=== PATIENT | male | born 1955 | race Caucasian/White ===

== ENCOUNTER 2016-11-22 12:00 | Emergency (ER) | payer SELFPAY ==
[2016-11-22] MEDS: Sodium Chloride 0.9% 20 ML SDV FLUSH SCH ×2 (12:20→15:07)
[2016-11-22] MEDS ORDERED: Nitroglycerin 0.4 MG Tab.SL SL PRN (12:33)
--- NOTE | 2016-11-22 12:40 | EDM.PDOC ---
ED HPI GENERAL MEDICAL PROBLEM - General Chief Complaint: Chest Pain Stated Complaint: CHEST PRESSURE Time Seen by Provider: 11/22/16 12:10 Source of Information: Reports: Patient History Limitations: Reports: No Limitations - History of Present Illness Onset: Today, Gradual Duration: Hour(s): (1) Location: Reports: Chest Quality: Reports: Pressure Severity: Mild Improves with: Reports: None Worsens with: Reports: None Context: Reports: Other (rest) Associated Symptoms: Reports: Diaphoresis, Nausea/Vomiting Treatments MANAGED CARE MANAGER: Reports: Aspirin Middle Chest Pain Score (Numeric/FACES): 1 - Related Data Allergies Allergy/AdvReac Type Severity Reaction Status Date / Time No Known Drug Allergies Allergy Cannot Verified 11/22/16 12:29 Remember Home Meds: Home Meds Metoprolol Tartrate [Lopressor] 12.5 mg PO BID 03/19/16 [History] Aspirin 81 mg PO DAILY 11/22/16 [History] Past Medical History HEENT History: Reports: None Cardiovascular History: Reports: Afib, Angina, High Cholesterol, Hypertension, Stents Respiratory History: Reports: None Gastrointestinal History: Reports: None Genitourinary History: Reports: None Musculoskeletal History: Reports: Arthritis Neurological History: Reports: None Psychiatric History: Reports: None Hematologic History: Reports: Anticoagulation Therapy Immunologic History: Reports: None Oncologic (Cancer) History: Reports: None Dermatologic History: Reports: None - Infectious Disease History Infectious Disease History: Reports: Chicken Pox, Measles, Mumps - Past Surgical History Cardiovascular Surgical History: Reports: Coronary Artery Stent Social & Family History - Family History Family Medical History: Unobtainable - Tobacco Use Smoking Status *Q: Never Smoker Years of Tobacco use: 0 Packs/Tins Daily: 1 Used Tobacco, but Quit: Yes Month Tobacco Last Used: September Second Hand Smoke Exposure: No - Caffeine Use Caffeine Use: Reports: Soda - Alcohol Use Days Per Week of Alcohol Use: 3 Number of Drinks Per Day: 5 Total Drinks Per Week: 15 - Recreational Drug Use Recreational Drug Use: No Recreational Drug Type: Reports: Marijuana/Hashish ED ROS GENERAL - Review of Systems Review Of Systems: See Below Constitutional: Reports: Diaphoresis. Denies: Fever HEENT: Reports: No Symptoms Respiratory: Reports: No Symptoms. Denies: Shortness of Breath, Cough Cardiovascular: Reports: Chest Pain Endocrine: Reports: No Symptoms GI/Abdominal: Reports: Nausea, Vomiting : Reports: No Symptoms Musculoskeletal: Reports: No Symptoms Skin: Reports: No Symptoms Neurological: Reports: No Symptoms Psychiatric: Reports: No Symptoms Hematologic/Lymphatic: Reports: No Symptoms Immunologic: Reports: No Symptoms ED EXAM, GENERAL - Physical Exam Exam: See Below Exam Limited By: No Limitations General Appearance: Alert, WD/WN, No Apparent Distress Eye Exam: Bilateral Eye: EOMI, PERRL Ears: Normal External Exam, Hearing Grossly Normal Nose: Normal Inspection, Normal Mucosa, No Blood Throat/Mouth: Normal Inspection, Normal Oropharynx, Normal Voice, No Airway Compromise Head: Atraumatic, Normocephalic Neck: Normal Inspection, Supple, Non-Tender, Full Range of Motion Respiratory/Chest: No Respiratory Distress, Lungs Clear, Normal Breath Sounds, No Accessory Muscle Use Cardiovascular: Normal Peripheral Pulses, Regular Rate, Rhythm, No Edema, No Gallop, No JVD, No Murmur, No Rub GI/Abdominal: Normal Bowel Sounds, Soft, Non-Tender, No Organomegaly, Other ( healing RLQ incision) Back Exam: Normal Inspection, Full Range of Motion Extremities: Normal Inspection, Normal Range of Motion, No Pedal Edema, Slow Capillary Refill Neurological: Alert, Oriented, CN II-XII Intact, Normal Cognition, Normal Gait, No Motor/Sensory Deficits Psychiatric: Normal Affect, Normal Mood Skin Exam: Warm, Dry, Intact, Normal Color, No Rash, Cool Course - Vital Signs Last Recorded V/S: Last Vital Signs Temp 36.4 C 11/22/16 13:32 Pulse 75 11/22/16 15:11 Resp 18 11/22/16 15:11 BP 145/76 H 11/22/16 15:11 Pulse Ox 100 11/22/16 15:11 - Orders/Labs/Meds Orders: Active Orders 24 hr Category Date Time Status EKG Documentation Completion [RC] ASDIRECTED Care 11/22/16 13:45 Active Chest 2V [CR] Stat Exams 11/22/16 12:34 Taken Heparin Sodium [Heparin Lock Flush 100 Units/ML] Med 11/22/16 15:04 Active 500 unit FLUSH ASDIRECTED PRN Sodium Chloride 0.9% [Normal Saline] Med 11/22/16 15:15 Active 20 ml FLUSH ASDIRECTED Medication Orders Heparin Sodium (Porcine) (Heparin Lock Flush 100 Units/Ml) 500 unit FLUSH ASDIRECTED PRN PRN Reason: port flush Sodium Chloride (Normal Saline) 20 ml FLUSH ASDIRECTED TEJAS Last Admin: 11/22/16 15:07 Dose: 20 ml Admin: 11/22/16 12:20 Dose: 20 ml Labs: Laboratory Tests 11/22/16 11/22/16 11/22/16 Range/Units 12:30 12:30 12:30 WBC (5.0-10.0) 10^3/uL RBC (4.50-6.00) 10^6/uL Hgb (13.0-17.0) g/dL Hct (40.0-52.0) % MCV (82.0-92.0) fL MCH (27.0-31.0) pg MCHC (32.0-36.0) g/dL RDW (11.5-14.5) % Plt Count (150-300) 10^3/uL MPV (7.4-10.4) fL Neut % (Auto) (50.0-70.0) % Lymph % (Auto) (20.0-40.0) % [place] % (Auto) (2.0-8.0) % Eos % (Auto) (1.0-3.0) % Baso % (Auto) (0.0-1.0) % Neut # (Auto) (2.5-7.0) 10^3/uL Lymph # (Auto) (1.0-4.0) 10^3/uL [place] # (Auto) (0.1-0.8) 10^3/uL Eos # (Auto) (0.1-0.3) 10^3/uL Baso # (Auto) (0.0-0.1) 10^3/uL PT 10.0 (8.9-11.4) SEC INR 1.0 (0.9-1.1) Sodium 138 (136-145) mmol/L Potassium 4.2 (3.3-5.3) mmol/L Chloride 102 (98-115) mmol/L Carbon Dioxide 27.0 (21.0-32.0) mmol/L BUN 14 (6-25) mg/dL Creatinine 0.76 (0.51-1.17) mg/dL Est Cr Clr Drug Dosing 100.78 mL/min Estimated GFR (MDRD) > 60 mL/min Glucose 119 H (70-110) mg/dL Lactic Acid 2.2 H (0.4-2.0) mmol/L Calcium 9.4 (8.7-10.3) mg/dL Total Bilirubin 1.2 H (0.2-1.0) mg/dL AST 33 (15-37) U/L ALT 32 (12-78) U/L Alkaline Phosphatase 108 (46-116) IU/L Troponin I < 0.07 (0.00-0.070) ng/mL B-Natriuretic Peptide 23 (0-100) pg/mL Total Protein 6.5 (6.4-8.2) g/dL Albumin 4.00 (3.00-4.80) g/dL 11/22/16 11/22/16 Range/Units 12:33 15:00 WBC 7.5 (5.0-10.0) 10^3/uL RBC 4.74 (4.50-6.00) 10^6/uL Hgb 14.5 (13.0-17.0) g/dL Hct 41.7 (40.0-52.0) % MCV 88.1 (82.0-92.0) fL MCH 30.6 (27.0-31.0) pg MCHC 34.8 (32.0-36.0) g/dL RDW 12.2 (11.5-14.5) % Plt Count 204 (150-300) 10^3/uL MPV 7.4 (7.4-10.4) fL Neut % (Auto) 74.3 H (50.0-70.0) % Lymph % (Auto) 15.4 L (20.0-40.0) % [place] % (Auto) 8.9 H (2.0-8.0) % Eos % (Auto) 0.9 L (1.0-3.0) % Baso % (Auto) 0.5 (0.0-1.0) % Neut # (Auto) 5.5 (2.5-7.0) 10^3/uL Lymph # (Auto) 1.2 (1.0-4.0) 10^3/uL [place] # (Auto) 0.7 (0.1-0.8) 10^3/uL Eos # (Auto) 0.1 (0.1-0.3) 10^3/uL Baso # (Auto) 0.0 (0.0-0.1) 10^3/uL PT (8.9-11.4) SEC INR (0.9-1.1) Sodium (136-145) mmol/L Potassium (3.3-5.3) mmol/L Chloride (98-115) mmol/L Carbon Dioxide (21.0-32.0) mmol/L BUN (6-25) mg/dL Creatinine (0.51-1.17) mg/dL Est Cr Clr Drug Dosing mL/min Estimated GFR (MDRD) mL/min Glucose (70-110) mg/dL Lactic Acid (0.4-2.0) mmol/L Calcium (8.7-10.3) mg/dL Total Bilirubin (0.2-1.0) mg/dL AST (15-37) U/L ALT (12-78) U/L Alkaline Phosphatase (46-116) IU/L Troponin I < 0.04 (0.00-0.070) ng/mL B-Natriuretic Peptide (0-100) pg/mL Total Protein (6.4-8.2) g/dL Albumin (3.00-4.80) g/dL Meds: Medications Generic Name Dose Route Start Last Admin Trade Name Freq PRN Reason Stop Dose Admin Heparin Sodium (Porcine) 500 unit 11/22/16 15:04 Heparin Lock Flush 100 Units/Ml FLUSH ASDIRECTED PRN port flush Sodium Chloride 20 ml 11/22/16 15:15 11/22/16 15:07 Normal Saline FLUSH 20 ml ASDIRECTED TEJAS Administration Discontinued Medications Generic Name Dose Route Start Last Admin Trade Name Freq PRN Reason Stop Dose Admin Sodium Chloride 1,000 mls @ 999 mls/hr 11/22/16 12:33 11/22/16 14:00 Normal Saline IV 11/22/16 13:33 999 mls/hr .BOLUS ONE Administration Nitroglycerin 0.4 mg 11/22/16 12:33 11/22/16 12:25 Nitrostat SL 11/22/16 12:44 0.4 mg Q5M PRN Administration Chest Pain - Re-Assessments/Exams Free Text/Narrative Re-Assessment/Exam: 11/22/16 15:57 [place] better with NS Departure - Departure Time of Disposition: 15:57 Disposition: Home, Self-Care 01 Condition: Good Clinical Impression: Dehydration Forms: ED Department Discharge - Problem List Review Problem List Initiated/Reviewed/Updated: No - My Orders Last 24 Hours: My Active Orders 11/22/16 12:34 Chest 2V [CR] Stat 11/22/16 13:45 EKG Documentation Completion [RC] ASDIRECTED 11/22/16 15:04 Heparin Sodium [Heparin Lock Flush 100 Units/ML] 500 unit FLUSH ASDIRECTED PRN 11/22/16 15:15 Sodium Chloride 0.9% [Normal Saline] 20 ml FLUSH ASDIRECTED - Assessment/Plan Last 24 Hours: My Active Orders 11/22/16 12:34 Chest 2V [CR] Stat 11/22/16 13:45 EKG Documentation Completion [RC] ASDIRECTED 11/22/16 15:04 Heparin Sodium [Heparin Lock Flush 100 Units/ML] 500 unit FLUSH ASDIRECTED PRN 11/22/16 15:15 Sodium Chloride 0.9% [Normal Saline] 20 ml FLUSH ASDIRECTED Assessment:: Mild chest discomfort, N,V, clammy feeling c/w dehydration. GA ruled out. Plan: F/U with Flo for a recheck
[2016-11-22] MEDS: Sodium Chloride 0.9% 1,000 ML IV ONE ×2 (12:45→14:00)
[2016-11-22] MEDS ORDERED: Heparin Sodium 100 Units/ML 5 ML MDV FLUSH PRN (15:04)
[2016-11-22 15:12] VITALS: BP 145/76
[2016-11-22 15:55] LABS: CHLORIDE,CL 102 mmol/L (98-115); SODIUM,NA 138 mmol/L (136-145)
== END 2016-11-22 16:15 | disposition home or self-care (01) ==
LOC: KA.ED 12:00
DX: E86.0 Dehydration (principal); I48.91 Unspecified atrial fibrillation; E78.00 Pure hypercholesterolemia, unspecified; I10 Essential (primary) hypertension; M19.90 Unspecified osteoarthritis, unspecified site; Z79.82 Long term (current) use of aspirin
CPT/HCPCS: 36415; 71020; 80053; 83605; 83880; 84484; 85025; 85610; 93005; 96360; 99285; A9270; J1642; J7030